=== PATIENT | male | born 1975 | race Caucasian/White ===

== ENCOUNTER 2018-08-04 17:55 | Emergency (ER) | payer OTHER ==
[2018-08-04 18:46] VITALS: BP 127/84; PULSE 90; TEMP 98.5; BMI 25.1
[2018-08-04] MEDS ORDERED: IBUPROFEN 600 MG TABLET (FP) PO ONE ×2 (18:50→19:09)
--- NOTE | 2018-08-04 18:50 | PDOC ---
History of Present Illness - History of Present Illness Initial Comments: 08/04/18 19:19 Asya 46M with no significant history presenting with a hemorrhoid over the past 3 months. Patient states he has severe pain with bowel movements over the past week. Patient is complaining that it is uncomfortable to sit secondary to the pain. Patient has been applying an over the counter cream to the area with no improvement. Patient also admits to constipation and lower abdominal pain chronically. Patients last bowel movement was yesterday, and was reportedly hard solid but no blood. Patient denies taking any pain meds or stool softeners. Patient denies fever, chills, dizziness, shortness of breath, headache. Patient denies any urinary complaints. Works as senior construction project manager. Admits to not drinking enough water during day. <Tamar Worrell - Last Filed: 08/04/18 19:19> - General History Source: Patient Exam Limitations: No Limitations <Zari Perez - Last Filed: 08/04/18 20:29> - General Chief Complaint: Pain Stated Complaint: ABDOMINAL PAIN Time Seen by Provider: 08/04/18 18:48 Past History <Tamar Worrell - Last Filed: 08/04/18 19:19> - Past Medical History COPD: No - Immunization History Immunization Up to Date: No - Suicide/Smoking/Psychosocial Hx Smoking History: Never smoked Have you smoked in the past 12 months: Yes Number of Cigarettes Smoked Daily: 1 Information on smoking cessation initiated: No Hx Alcohol Use: Yes (Ocassional) Substance Use Type: None <Zari Perez - Last Filed: 08/04/18 20:29> - Past Medical History Allergies/Adverse Reactions: Allergies Allergy/AdvReac Type Severity Reaction Status Date / Time No Known Allergies Allergy Verified 08/04/18 18:46 Home Medications: Ambulatory Orders Cephalexin Monohydrate [Keflex -] 500 mg PO Q6H #21 capsule 05/01/14 Docusate Sodium [Colace -] 100 mg PO BID PRN #28 capsule 08/04/18 Hydrocortisone 2.5% Topical Cr [Anusol 2.5% Hc Cream -] 1 applic RC DAILY PRN # 1 tube 08/04/18 Review of Systems - Review of Systems Able to Perform ROS?: Yes Comments:: 08/04/18 19:19 ROS General Medical GENERAL/CONSTITUTIONAL: No fever or chills. No weakness. no sweats. CARDIOVASCULAR: No chest pain or palpitations, syncope RESPIRATORY: No SOB GASTROINTESTINAL No nausea/vomiting. No diarrhea. No bloody stools. (+) Hemorrhoid. (+) Constipation. GENITOURINARY: No hematuria, dysuria, frequency, urgency or other changes. MUSCULOSKELETAL: No joint or muscle swelling or pain. No neck or back pain. SKIN: No rash or changes in skin color or lesions. NEUROLOGIC: No headache or dizziness HEMATOLOGIC/LYMPHATIC: No anemia, easy bruising/bleeding, or history of blood clots. ALLERGIC/IMMUNOLOGIC: No allergies All other systems reviewed and negative, or as documented in HPI. <Tamar Worrell - Last Filed: 08/04/18 19:19> *Physical Exam - Vital Signs Last Vital Signs Temp Pulse Resp BP Pulse Ox 98.5 F 90 18 127/84 97 08/04/18 18:43 08/04/18 18:43 08/04/18 18:43 08/04/18 18:43 08/04/18 18:43 - Physical Exam Comments: 08/04/18 19:20 Physical exam (general medical): for attending only patients. General: Well appearing, awake and alert, NAD. HEENT: NCAT, PERRL, EOMI, clear conjunctiva, anicteric, moist mucus membranes, clear oropharynx, no oral lesions.. Neck: neck supple, FROM Resp: CTAB, normal and even respirations, no respiratory distress CVS: RRR, no murmurs, 2+ peripheral pulses throughout, no peripheral edema Abdomen: soft, NTND, no peritoneal signs. Rectal: (+) Left external tender hemorrhoid, soft and pink. : normal external genitalia, no lesions, normal testicular lie, no scrotal or testicular edema or tenderness. no hernia. Back: nontender, normal inspection and ROM MSK: no edema, MA x4, ROM intact. No clubbing or cyanosis. normal bulk and tone. Neuro: alert Skin: warm and well perfused, cap refill <2 sec, normal color <Tamar Worrell - Last Filed: 08/04/18 19:19> - Vital Signs Last Vital Signs Temp Pulse Resp BP Pulse Ox 98.5 F 90 18 127/84 97 08/04/18 18:43 08/04/18 18:43 08/04/18 18:43 08/04/18 18:43 08/04/18 18:43 <Zari Perez - Last Filed: 08/04/18 20:29> Procedures - Incision and Drainage I&D Site: Left: Buttock Betadine cleansed: Yes Anesthesia: 1% Lidocaine Volume(ml): 5 Blade Size: 11 Attempts: 1 Complications: none Progress: 08/04/18 20:27 indication for external thrombosed hemorrhoid, incise and drained with blood clots removed. <Zari Perez - Last Filed: 08/04/18 20:29> ED Treatment Course - Medications Given in the ED: ED Medications Discontinued Medications Generic Name Dose Route Start Last Admin Trade Name Freq PRN Reason Stop Dose Admin Ibuprofen 600 mg 08/04/18 18:50 08/04/18 19:13 Motrin - PO 08/04/18 18:51 600 mg ONCE ONE Administration Lidocaine/Prilocaine 1 applic 08/04/18 19:12 08/04/18 19:16 Emla - TP 08/04/18 19:13 1 applic ONCE ONE Administration <Tamar Worrell - Last Filed: 08/04/18 19:19> Medical Decision Making - Medical Decision Making 08/04/18 20:28 42 YOM with constipation and left external thrombosed hemorrhoid s/p Incision and drainage, removal of several clots topical analgesia and motrin. stool softener PRN and high fiber diet/hydration avoid prolonged sitting warm sitz baths 3-4X per day. fu pcp and GI, dc in stable condition <Zari Perez - Last Filed: 08/04/18 20:29> *DC/Admit/Observation/Transfer - Attestations Scribe Attestion: 08/04/18 19:20 Documentation prepared by Tamar Worrell, acting as nuclear medicine medical director for Zari Perez MD. <Tamar Worrell - Last Filed: 08/04/18 19:19> - Discharge Dispostion Decision to Admit order: No - Attestations Physician Attestion: 08/04/18 19:32 Zari Dobson MD, attest that this document has been prepared under my direction and personally reviewed by me in its entirety. I further attest, that it accurately reflects all work, treatment, procedures and medical decision -making performed by me. <Zari Perez - Last Filed: 08/04/18 20:29> Diagnosis at time of Disposition: Hemorrhoids, external, thrombosed - Discharge Dispostion Disposition: HOME Condition at time of disposition: Improved - Prescriptions Prescriptions: Docusate Sodium [Colace -] 100 mg PO BID PRN #28 capsule PRN Reason: Constipation Hydrocortisone 2.5% Topical Cr [Anusol 2.5% Hc Cream -] 1 applic RC DAILY PRN # 1 tube PRN Reason: Pain - Referrals Referrals: [facility] [Provider Group] [facility] [address] [Provider Group] Adrian Hood MD [Staff Physician] - - Patient Instructions Printed Discharge Instructions: DI for Hemorrhoids, Increased Dietary Fiber May Improve Constipation Conditions With Pelvic Cade, DI for Constipation Additional Instructions: today you had a thrombosed hemorrhoid we had to cut open today. it will remain open and drained, which may cause pain and irritation. stool softeners will help. warm sitz baths with warm water three to four times a day stay hydrated, high fiber diet and stool softner to pharmacy sent, as needed for constipation avoid sitting on toilet for long time. stay mobile. may use rectal enema for symptoms as well if stool is impacted. follow up with primary doctor and extractor and wringer operator for management of your hemorrhoids, but important to minimize constipation - Post Discharge Activity Forms/Work/School Notes: Back to Work
[2018-08-04] MEDS ORDERED: LIDOCAINE 2.5%/PRILOCAINE 2.5% (5 Gram/TUBE) TP ONE ×2 (19:12→19:15)
== END 2018-08-04 21:37 | disposition home or self-care (01) ==
LOC: JER 17:55
PROC: 0Y910ZZ Drainage of Left Buttock, Open Approach (ICD-10-PCS; principal; 2018-08-04)
DX: K64.5 Perianal venous thrombosis (principal)
CPT/HCPCS: 99282-25

== ENCOUNTER 2019-02-15 17:53 | Emergency (ER) | payer OTHER | END 2019-02-15 18:39 | disposition home or self-care (01) | LOC: JER 17:53 → JERFT 18:39 ==

== ENCOUNTER 2022-05-03 03:12 | Emergency (ER) | payer OTHER ==
[2022-05-03 03:32] VITALS: BP 121/82; PULSE 60; RESP 18; TEMP 98.4; BMI 25.0
[2022-05-03] MEDS ORDERED: KETOROLAC TROMETHAMINE 30 MG/1 ML VIAL IM ONE (03:50)
[2022-05-03] MEDS ORDERED: LIDOCAINE HCL 2% JELLY 10 ML CARTRIDGE PR ONE (03:50)
[2022-05-03] MEDS ORDERED: KETOROLAC TROMETHAMINE 30 MG/1 ML VIAL ONE (03:56)
[2022-05-03] MEDS ORDERED: LIDOCAINE HCL 2% JELLY (5 ML/TUBE) ONE (03:56)
== END 2022-05-03 04:42 | disposition home or self-care (01) ==
LOC: JER 03:12
PROC: 3E0233Z Introduction of Anti-inflammatory into Muscle, Percutaneous Approach (ICD-10-PCS; principal; 2022-05-03)
DX: K64.8 Other hemorrhoids (principal)
CPT/HCPCS: 99283-25